=== PATIENT | female | born 1980 | race American Indian/Alaskan Native ===

== ENCOUNTER 2018-11-30 17:49 | Inpatient (IN) ==
[2018-11-30] MEDS ORDERED: IOPAMIDOL 100 ML BOTTLE IV ONE (17:50)
[2018-11-30] MEDS ORDERED: KETOROLAC 30 MG/ML VIAL IV ONE (18:10)
[2018-11-30] MEDS ORDERED: ONDANSETRON 4 MG/2 ML VIAL IV ONE ×2 (18:11→21:22)
[2018-11-30] MEDS ORDERED: 0.9 % SODIUM CHLORIDE 1,000 ML IV ONE ×2 (18:22→20:38)
[2018-11-30 19:44] LABS: Basophils # (Auto) 0 K/mcL (0.0-0.3); Basophils % (Auto) 0 % (0.0-2.0); Eosinophils # (Auto) 0 K/mcL (0.0-0.7); Eosinophils % (Auto) 0 % (0.0-7.0); Granulocytes % (Auto) 88.2 % (38.0-78.0); Lymphocytes # (Auto) 1.6 K/mcL (1.5-4.8); Lymphocytes % (Auto) 10.6 % (15.5-49.0); Mean Cell Volume 73.3 fL (80.0-100.0); Mean Corpuscular HGB Conc 31.4 g/dL (31.0-36.0); Monocytes # (Auto) 0.2 K/mcL (0.1-0.9); Monocytes % (Auto) 1.2 % (1.0-12.0); Platelet Count 258 K/mcL (140-440); Red Cell Distribution Width 18.8 % (11.5-14.5)
[2018-11-30 20:16] LABS: ALT/SGPT 19 U/l (0-40); Albumin/Globulin Ratio 1.1 (1.0-2.3); Alkaline Phosphatase 107 U/L (39-117); Blood Urea Nitrogen 3 mg/dl (6-20); Lipase 37 U/L (7-60)
[2018-11-30] MEDS ORDERED: HYDROmorphone 2 MG/ML VIAL IV ONE (20:38)
[2018-11-30] MEDS ORDERED: cefTRIAXone 1 GM VIAL IV ONE (20:38)
[2018-11-30] MEDS ORDERED: ACETAMINOPHEN 325 MG TABLET PO ONE (22:20)
[2018-11-30 22:38] LABS: Appearance,Urine CLEAR; Bacteria,Urine 0 /hpf (0); Bilirubin,Urine NEG (NEG); Color,Urine YELLOW; Glucose,Urine (UA) NEGATIVE (NEG); Leukocyte Esterase,Urine 500 /uL (NEG); Mucus,Urine MOD /hpf (0); Protein,Urine NEG (NEG); Specific Gravity,Urine 1.034 (1.000-1.035); Urine Blood 0.2 mg/dL (<0.03); Urine RBC 24 /hpf (0-1); Urine Squamous Epithelial Cell 5 /hpf (0-4); Urine Transitional Epi Cells < 1 /hpf (0-2); Urine WBC 161 /hpf (0-4)
[2018-11-30 22:49] LABS: Amphetamine Screen,Urine SUSPECT POSITIVE (NONDETECTED); Benzodiazepines Screen,Urine NONE DETECTED (NONDETECTED); Cocaine Screen,Urine NONE DETECTED (NONDETECTED); Opiate Screen,Urine NONE DETECTED (NONDETECTED); Oxycodone, Urine Screen NONE DETECTED (NONDETECTED)
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
[2018-11-30] MEDS ORDERED: PROMETHAZINE 25 MG/ML VIAL IM PRN (23:35)
[2018-11-30] MEDS ORDERED: HYDROcodone/APAP 5/325MG TABLET PO PRN (23:35)
[2018-11-30] MEDS ORDERED: ONDANSETRON 4 MG/2 ML VIAL IV PRN (23:35)
[2018-11-30] MEDS ORDERED: ACETAMINOPHEN 650 MG/65 ML BOTTLE IV ONE (23:42)
[2018-11-30] MEDS ORDERED: cefTRIAXone 1 GM VIAL IV SCH (23:45)
[2018-11-30] MEDS ORDERED: cefTRIAXone 2 GM in DEXTROSE 5% IN WATER 50 ML IV SCH (23:45)
[2018-11-30] MEDS ORDERED: 0.9 % SODIUM CHLORIDE 1,000 ML IV SCH (23:45)
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
[2018-11-30] MEDS ORDERED: LORazepam 0.5 MG TABLET PO PRN (23:51)
[2018-12-01] MEDS ORDERED: ACETAMINOPHEN 650 MG/65 ML BOTTLE IV PRN (00:49)
[2018-12-01] MEDS ORDERED: cefTRIAXone 1 GM VIAL ONE (01:10)
[2018-12-01] MEDS: LACTATED RINGERS 1,000 ML IV SCH ×3 (01:15→13:29)
[2018-12-01 06:01] LABS: Mean Cell Volume 75.9 fL (80.0-100.0); Mean Corpuscular HGB Conc 30.8 g/dL (31.0-36.0); Platelet Count 197 K/mcL (140-440); RBC 4.56 M/mcL (4.00-5.20); Red Cell Distribution Width 19.3 % (11.5-14.5)
[2018-12-01 06:38] LABS: ALT/SGPT 39 U/l (0-40); Alkaline Phosphatase 100 U/L (39-117); Bilirubin,Direct < 0.2 mg/dL (0.0-0.3); Blood Urea Nitrogen 5 mg/dl (6-20); Gamma Glutamyl Transpeptidase 15 U/L (5-36); Uric Acid 2.9 mg/dL (2.5-8.0)
[2018-12-01 07:33] LABS: Anisocytosis 1+ (NONE SEEN); Band Neutrophils % 27 % (0-10); Hypochromasia 1+ (NONE SEEN); Lymphocytes % 5 % (15-49); Monocytes % (Manual) 2 % (1-12); Platelet Estimate NORMAL (NORMAL); RBC Morphology ABNORM (NORMAL); Segmented Neutrophils % 66 % (38-78)
--- NOTE | 2018-12-01 07:53 | XRay Report ---
HISTORY: Lost tampon with abdominal pain FINDINGS: There is no evidence of a tampon within the abdomen or pelvis. There are clips in the gallbladder fossa. There are multiple tiny flecks of radiopaque material mixed with stool in the colon. This is probably ingested material. There is a small air-fluid level in a loop of jejunum in the left upper quadrant. This is a nonspecific pattern. This segment of bowel is not abnormally dilated. No free intra-abdominal air is present. The stomach is decompressed. IMPRESSION: No evidence of tampon within the abdomen and no acute abnormality Interpreted and Authenticated by: Fernandez Mckeon 12/01/18
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
--- NOTE | 2018-12-01 08:19 | Cat Scan Report ---
CLINICAL INFORMATION: Fever and severe abdominal and pelvic pain COMPARISON: None. TECHNIQUE: Following injection of intravenous contrast the patient was scanned during the portal venous phase from the diaphragm through the symphysis pubis. Sagittal and coronal reformats were created.. Radiation exposure was limited using dose reduction technology. FINDINGS: Dependent atelectasis is present posteriorly in both lung bases. There is no pleural effusion. Liver is normal in size. Beneath the capsule far inferiorly in segment six of the right lobe there is a well-circumscribed low-attenuation structure which measures 2.1 x 2.4 cm. This seen on axial image #80. It has fluid attenuation and is most likely a cyst. The remainder the liver is normal. The gallbladder has been removed. Common bile duct measures up to 6 x 7 mm in diameter. This is within normal limits following cholecystectomy. There is no evidence of stone or mass in the distal common bile duct. The pancreas is normal in size and homogeneous. The spleen is also normal. No abnormality is seen within the adrenals. The right kidney is normal. An 8 x 9 mm simple cyst is present posteriorly in the middle portion of the left kidney. The kidneys are otherwise normal. Patient has an internal hernia containing a segment of distal jejunum. Is located anterior to the left kidney. There is visualization of the contents within this dilated and trapped segment of small bowel. This measures 4 cm in diameter. It is contiguous with the descending and sigmoid colon but separate from the colon. There is a large amount of liquefied stool in the cecum and ascending colon and a moderate amount of gas and stool in the transverse proximal descending colon there is a mobile cecum. Multiple flecks of radiopaque material are seen mixed with stool in the distal colon. There is no evidence of diverticulitis. The sigmoid colon is decompressed and not abnormally elongated. The uterus is enlarged and bulky and has abnormal low attenuation in the central component. The periphery appears somewhat hypervascular. No abnormality seen in the ovaries separate calcification adjacent to left ovary which measures 6 to 7 mm greatest diameter. No free fluid is present. Urinary bladder appears normal. IMPRESSION: Internal hernia with incarcerated jejunum in the left mid abdomen. Enlarged edematous uterus. This could be due to endometritis Cysts in the liver and left kidney Dr. Contreras was called with the results Interpreted and Authenticated by: Fernandez Mkceon 12/01/18
[2018-12-01] MEDS ORDERED: MAGNESIUM SULFATE 2 GM/50 ML BAG IV ONE ×2 (08:47→15:30)
--- NOTE | 2018-12-01 09:20 | Ultrasound Report ---
History: Sepsis and abdominal pain L findings This was a technically limited exam. Patient was unable to hold still nor tolerate any abdominal pressure from the ultrasound transducer. The visualized portion of liver appears normal and homogeneous. The cystic structure seen inferiorly in segment six on the preceding CT scan cannot be identified on this ultrasound. The gallbladder is surgically absent. The extrahepatic bile ducts cannot be visualized. Only small segments of the pancreas are visualized and appear grossly normal. The spleen is normal in size and homogeneous. Limited views of the kidneys show no abnormality. The aorta and inferior vena cava are not seen. No free fluid or mass are identified. IMPRESSION: Limited exam with no acute abnormality identified Interpreted and Authenticated by: Fernandez Mckeon 12/01/18
[2018-12-01] MEDS: PIPERACILLIN SODIUM/TAZOBACTAM 3.375 GM in DEXTROSE 5% IN WATER 50 ML IV SCH ×3 (10:12→22:30)
--- NOTE | 2018-12-01 12:07 | General Surgery Progress Note ---
Surgical - Auxillary Note - Subjective Patient Information: Note initiated : 12/01/18 at 11:58 am Service Date, if different from initiated Date: [] Patient: Anabell Moreno 38 y/o F admitted on 12/01/18 for ABD PAIN. Chief Complaint: abdominal pain. On review of the patient's CT scan this morning with the radiologist here at [facility], it appears that the patient has a chronic internal hernia that now has facalized, stool in it. I personally reviewed the images with the radiologist and it appears that this is in the left lower quadrant and is very close to the descending colon. The bowel appears to be viable, but it is dilated and you can clearly see where the blood vessels and bowel going into an area and then come back out and there is formed stool within that portion of small bowel. The rest of the bowel is clearly dilated. The patient's white blood cell count has gone up to 22,000. Her pain is improved and she did move her bowel. This morning, but the pain in her left lower quadrant is still significant and I feel that it is in her best interest to have a surgical procedure now rather than waiting until she becomes obstructed. I have discussed the risks, benefits, alternatives and complications of an exploratory laparotomy with possible small bowel obstruction with the patient to include but not limited to bleeding, hematoma, seroma, infection, spillage of stool, intra-abdominal abscess formation, need to resect bowel, breakdown of the anastomosis, postoperative ileus, need for a nasogastric tube, injury to other portions of the bowel, need for other surgical procedures, injury to the ureters, injury to blood vessels, infection of the incision site, need to leave the incision open, blood clots in the legs, leg clots in the lungs, aspiration, pneumonia, heart attack, stroke and . The patient states she understands and desires the procedure. The benefit will be that the internal hernia will be resolved and this may help with her constipation issues. The alternative would be to continue to give her antibiotics, IV hydration and follow her exam, but I do not feel that this is going to resolve the internal hernia.
[2018-12-01] MEDS ORDERED: LORazepam 2 MG/ML VIAL IV PRN (13:09)
[2018-12-01] MEDS ORDERED: chlordiazePOXIDE 25 MG CAPSULE PO PRN (13:09)
[2018-12-01] MEDS ORDERED: cloNIDine HCL 0.1 MG TABLET PO PRN (13:09)
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
[2018-12-01] MEDS: 0.9 % SODIUM CHLORIDE 10 ML SYRINGE IV SCH ×2 (13:29→22:30)
[2018-12-01] MEDS ORDERED: SUGAMMADEX SODIUM 200 MG/2 ML VIAL IV ONE (15:30)
[2018-12-01] MEDS ORDERED: ONDANSETRON 4 MG/2 ML VIAL ONE (15:30)
[2018-12-01] MEDS ORDERED: VASOPRESSIN 20 UNIT/ML VIAL ONE (15:30)
[2018-12-01] MEDS ORDERED: KETAMINE 10 MG/ML ML ONE (15:30)
[2018-12-01] MEDS ORDERED: PROPOFOL 200 MG/20 ML VIAL IV ONE (15:30)
[2018-12-01] MEDS ORDERED: DEXAMETHASONE 10 MG/ML VIAL ONE (15:30)
[2018-12-01] MEDS ORDERED: LIDOCAINE HCL/PF 100 MG/5 ML SYRINGE IV ONE (15:30)
[2018-12-01] MEDS ORDERED: fentaNYL 100 MCG/2 ML VIAL IV ONE (15:30)
[2018-12-01] MEDS ORDERED: HYDROmorphone 2 MG/ML VIAL ONE ×2 (15:30→22:22)
[2018-12-01] MEDS ORDERED: ROCURONIUM 10 MG/ML ML IV ONE (15:30)
[2018-12-01] MEDS ORDERED: MIDAZOLAM 5 MG/5 ML VIAL ONE (15:30)
[2018-12-01] MEDS ORDERED: PHENYLEPHRINE 10 MG/ML VIAL ONE (15:30)
[2018-12-01] MEDS ORDERED: LIDOCAINE 1% 20 ML VIAL SQ ONE (15:51)
[2018-12-01] MEDS ORDERED: BUPIVACAINE 0.25% 50 ML VIAL IJ ONE (15:51)
[2018-12-01] MEDS ORDERED: metroNIDAZOLE 500 MG TABLET PO ONE (17:10)
[2018-12-01] MEDS ORDERED: AZITHROMYCIN 250 MG TABLET PO ONE (17:11)
[2018-12-01] MEDS ORDERED: cefTRIAXone 250 MG VIAL IV ONE (17:11)
[2018-12-01] MEDS ORDERED: IPRATROPIUM/ALBUTEROL 3 ML AMPUL.NEB NEB PRN (20:37)
[2018-12-01] MEDS ORDERED: MEPERIDINE 25 MG/ML SYRINGE IV PRN (20:37)
[2018-12-01] MEDS ORDERED: ONDANSETRON 4 MG/2 ML VIAL IV PRN (20:37)
[2018-12-01] MEDS ORDERED: BENZOCAINE/MENTHOL 1 LOZENGE PO PRN (20:37)
[2018-12-01] MEDS ORDERED: FLUMAZENIL 0.1 MG/ML ML IV PRN (20:37)
[2018-12-01] MEDS ORDERED: NALOXONE HCL 0.4 MG/ML VIAL IV PRN ×2 (20:37→21:37)
[2018-12-01] MEDS ORDERED: KETOROLAC 30 MG/ML VIAL IV PRN (20:37)
[2018-12-01] MEDS ORDERED: LACTATED RINGERS 250 ML IV PRN (20:37)
[2018-12-01] MEDS ORDERED: ACETAMINOPHEN 1,000 MG/100 ML BOTTLE IV ONE (20:37)
[2018-12-01] MEDS ORDERED: fentaNYL 100 MCG/2 ML VIAL IV PRN (20:37)
[2018-12-01] MEDS ORDERED: METHOCARBAMOL 1,000 MG/10 ML VIAL IV PRN (20:37)
[2018-12-01] MEDS ORDERED: LACTATED RINGERS 1,000 ML IV SCH (20:45)
--- NOTE | 2018-12-01 21:31 | Brief Operative Note ---
Date of procedure: 12/01/18 Pre-op diagnosis: possible internal hernia with incarceration Post-op diagnosis: other (chronic internal hernia with no evidence of incarceration, multiple intra-abdominal adhesions, massive dilation of the sigmoid colon, likely PID) Procedure: 1) exploratory laparotomy. 2) extensive enterolysis. 3) resection of sigmoid colon with handsewn end-to-end anastomosis. 4) takedown of the splenic flexure Grafts/Implants: No Anesthesia: GETA Findings: 1) extensive adhesions between loops of bowel and the omentum. 2. Internal hernia caused by the omentum pulling the sigmoid colon, up toward the liver with: Underneath this which was dilated proximal and distal to this area. 3). Massively dilated sigmoid colon with a rent in the mesentery which would easily allow small bowel to go through it, although there was no evidence of small bowel hernia Complications: none Surgeon: Aly Kline Estimated blood loss (cc): 150 (milliliters) Specimens Removed/Pathology: other (sigmoid colon) Condition: stable Disposition: floor
[2018-12-01] MEDS ORDERED: diphenhydrAMINE 50 MG/ML VIAL IV PRN (21:37)
[2018-12-01] MEDS ORDERED: AZITHROMYCIN 500 MG in DEXTROSE 5% IN WATER 250 ML IV ONE (22:00)
[2018-12-01] MEDS ORDERED: METRONIDAZOLE IV ONE (22:00)
[2018-12-01] MEDS: DEXTROSE 5%-1/2NS 1,000 ML IV SCH (22:10)
[2018-12-01] MEDS ORDERED: metroNIDAZOLE 1,000 MG/200 ML BAG IV ONE (22:11)
[2018-12-01] MEDS ORDERED: HYDROmorphone 2 MG/ML VIAL IV PRN (22:35)
[2018-12-02 00:13] LABS: Blood Urea Nitrogen 7 mg/dl (6-20)
[2018-12-02] MEDS: LACTATED RINGERS 1,000 ML IV SCH ×2 (00:28→02:45)
[2018-12-02] MEDS: PIPERACILLIN SODIUM/TAZOBACTAM 3.375 GM in DEXTROSE 5% IN WATER 50 ML IV SCH ×5 (01:51→23:59)
[2018-12-02] MEDS ORDERED: metroNIDAZOLE 1,000 MG/200 ML BAG IV ONE (01:52)
[2018-12-02] MEDS ORDERED: HYDROmorphone 2 MG/ML VIAL ONE (02:21)
[2018-12-02] MEDS: DEXTROSE 5%-1/2NS 1,000 ML IV SCH ×4 (05:15→20:15)
[2018-12-02] MEDS: 0.9 % SODIUM CHLORIDE 10 ML SYRINGE IV SCH ×3 (05:52→23:06)
[2018-12-02 06:17] LABS: Mean Corpuscular HGB Conc 30.2 g/dL (31.0-36.0); Platelet Count 210 K/mcL (140-440); RBC 4.53 M/mcL (4.00-5.20); Red Cell Distribution Width 19.2 % (11.5-14.5)
[2018-12-02 06:42] LABS: ALT/SGPT 20 U/l (0-40); Albumin 2.1 gm/dL (3.2-5.2); Albumin/Globulin Ratio 0.8 (1.0-2.3); Alkaline Phosphatase 106 U/L (39-117); Bilirubin,Direct < 0.2 mg/dL (0.0-0.3); Blood Urea Nitrogen 7 mg/dl (6-20); Gamma Glutamyl Transpeptidase 10 U/L (5-36); Uric Acid 1.4 mg/dL (2.5-8.0)
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
[2018-12-02] MEDS ORDERED: CALCIUM GLUCONATE 4.65 MEQ in DEXTROSE 5% IN WATER 50 ML IV ONE (08:00)
[2018-12-02 08:57] LABS: Anisocytosis 1+ (NONE SEEN); Band Neutrophils % 35 % (0-10); Hypochromasia 1+ (NONE SEEN); Lymphocytes % 5 % (15-49); Ovalocytes OCC (NONE SEEN); Platelet Estimate NORMAL (NORMAL); RBC Morphology ABNORM (NORMAL); Segmented Neutrophils % 60 % (38-78)
[2018-12-02] MEDS ORDERED: FOLIC ACID 1 MG TABLET PO SCH (09:00)
[2018-12-02] MEDS ORDERED: MULTIVIT,THER IRON,CA,FA & MIN 1 TABLET PO SCH (09:00)
[2018-12-02] MEDS ORDERED: ENOXAPARIN 30 MG/0.3 ML SYRINGE SQ SCH (09:00)
[2018-12-02] MEDS ORDERED: THIAMINE 100 MG TABLET PO SCH (09:00)
[2018-12-02] MEDS ORDERED: AZITHROMYCIN 500 MG in DEXTROSE 5% IN WATER 250 ML IV ONE (09:00)
[2018-12-02] MEDS ORDERED: HYDROmorphone 2 MG/ML VIAL IV PRN (11:05)
[2018-12-02] MEDS ORDERED: chlordiazePOXIDE 25 MG CAPSULE PO PRN (11:31)
[2018-12-02] MEDS ORDERED: PROMETHAZINE 25 MG/ML VIAL IM PRN (11:31)
[2018-12-02] MEDS ORDERED: NALOXONE HCL 0.4 MG/ML VIAL IV PRN (11:31)
[2018-12-02] MEDS ORDERED: LORazepam 2 MG/ML VIAL IV PRN (11:31)
[2018-12-02] MEDS: THIAMINE 100 MG in 0.9 % SODIUM CHLORIDE 50 ML IV SCH (12:10)
--- NOTE | 2018-12-02 12:27 | General Surgery Progress Note ---
Subjective Patient reports: still having pain, no flatus, no bowel movement, afebrile Narrative: Note initiated : 12/02/18 at 12:26 pm Service Date, if different from initiated Date: [] Patient: Anabell Moreno 38 y/o F admitted on 12/01/18 for ABD PAIN. Chief Complaint: Lower abdominal pain Postoperative day #1 status post 1) exploratory laparotomy, 2) extensive enterolysis, 3) resection of sigmoid colon with handsewn anastomosis and 4) takedown of splenic flexure Patient states that she does feel better than she did yesterday at that her surgical site pain is significant and all the Dilaudid is helping the time between doses is not controlling the pain prolonged enough. I explained we will address those. I was unable to give her a BULK [employer] HANDLER because there are no wall attendant available in the hospital. Explained to her that the Gao catheter will be removed this morning and she will need to get out of bed, walking to the bathroom and use the commode and not use a bedpan. She stated she understood. I explained to her that she might have some bowel movements but this is secondary to residual stool that was in her very dilated rectum. Explained to her why she has drains in place. She states she understands. Explained the significance of being out of bed into a chair, ambulating and using the incentive spirometer. She also states she understands. I did let the patient know there was not any compromised or nonviable bowel. I removed the sigmoid colon because she did have an area of scarring which was c reating an internal hernia for the small bowel and after taking this down, the sigmoid colon was so dilated, large and heavy that it was not safe to leave it in place as it would lead to further complications. She has had these bowel issues for years and they were not acute but they were made worse by her primary problem which is pelvic inflammatory disease and a UTI. These are being managed by the primary service. Objective Temp Pulse Resp BP Pulse Ox 97.6 F 82 16 110/67 97 12/02/18 11:53 12/02/18 11:53 12/02/18 11:53 12/02/18 11:53 12/02/18 07:10 - Additional Data Intake & Output - Last 24 hours: Intake & Output 11/30/18 12/01/18 12/02/18 12/03/18 05:59 05:59 05:59 05:59 Intake Total 2100 690 115 Output Total 745 Balance 2100 6150 115 Weight 168 lb 168 lb - General physical appearance well developed, well nourished, moderate pain - Eyes normal ocular movement, other (no scleral icterus) - ENT normal pinna, normal nares, normal mucosa, no hearing loss, no congestion - Neck no masses, trachea midline, no venous distension - Respiratory normal expansion, normal respiratory effort, other (no audible wheezes) - Cardiovascular Cardiovascular exam: Present: normal rate and rhythm (heart rate has consistently been less than 100 symptoms after midnight) - Abdomen soft, tender (appropriate postoperative tenderness), wound (dressing is clean dry and intact, Torres-Hsieh drains in the right and left paracolic gutters functioning with serosanguineous output) - Integumentary no rash - Neurologic normal coordination - Musculoskeletal other (moving all extremities in bed, no edema) - Psychiatric oriented to time, oriented to person, oriented to place, speech is normal - Labs 12/02/18 04:17 12/02/18 04:17 Diabetes panel 12/01/18 12/02/18 Range/Units 22:15 04:17 Sodium 137 138 (133-145) mmol/L Potassium 3.8 3.6 (3.3-5.1) mmol/L Chloride 106 106 (96-108) mmol/L Carbon Dioxide 19 L 21 L (22-30) mmol/L BUN 7 7 (6-20) mg/dl Creatinine 0.6 0.6 (0.6-1.1) mg/dl Glucose 136 H 200 H (70-105) mg/dL Calcium 7.0 L 6.8 L (8.6-10.4) mg/dl AST 26 (0-37) U/l ALT 20 (0-40) U/l Alkaline Phosphatase 106 (39-117) U/L Total Protein 4.6 L (5.9-8.4) gm/dL Albumin 2.1 L (3.2-5.2) gm/dL Triglycerides 33 (<150) mg/dl Calcium panel 12/01/18 12/02/18 Range/Units 22:15 04:17 Calcium 7.0 L 6.8 L (8.6-10.4) mg/dl Phosphorus 2.8 (2.7-4.5) mg/dL Albumin 2.1 L (3.2-5.2) gm/dL Pituitary panel 12/01/18 12/02/18 Range/Units 22:15 04:17 Sodium 137 138 (133-145) mmol/L Potassium 3.8 3.6 (3.3-5.1) mmol/L Chloride 106 106 (96-108) mmol/L Carbon Dioxide 19 L 21 L (22-30) mmol/L BUN 7 7 (6-20) mg/dl Creatinine 0.6 0.6 (0.6-1.1) mg/dl Glucose 136 H 200 H (70-105) mg/dL Calcium 7.0 L 6.8 L (8.6-10.4) mg/dl Adrenal panel 12/01/18 12/02/18 Range/Units 22:15 04:17 Sodium 137 138 (133-145) mmol/L Potassium 3.8 3.6 (3.3-5.1) mmol/L Chloride 106 106 (96-108) mmol/L Carbon Dioxide 19 L 21 L (22-30) mmol/L BUN 7 7 (6-20) mg/dl Creatinine 0.6 0.6 (0.6-1.1) mg/dl Glucose 136 H 200 H (70-105) mg/dL Calcium 7.0 L 6.8 L (8.6-10.4) mg/dl Total Bilirubin 0.6 (0.0-1.0) mg/dL AST 26 (0-37) U/l ALT 20 (0-40) U/l Alkaline Phosphatase 106 (39-117) U/L Total Protein 4.6 L (5.9-8.4) gm/dL Albumin 2.1 L (3.2-5.2) gm/dL Assessment and Plan (1) Urinary tract infection Status: Acute Assessment and plan: This is being managed by the primary service as well as the pelvic inflammatory disease Current Visit: Yes (2) Chronic constipation Status: Acute Assessment and plan: 1) this is likely secondary to an area of adhesion with a chronic nonincarcerated internal hernia. 2) postoperative day #1 status post sigmoid colectomy with primary anastomosis 3) should improve as she has return of bowel function Current Visit: Yes (3) Pelvic inflammatory disease, acute Status: Acute Assessment and plan: This is being managed by the primary admitting service and likely contributed to the worsening of her bowel distention and chronic constipation Current Visit: Yes (4) Hernia, internal Status: Acute Assessment and plan: 1) postoperative day #1 status post extensive lysis of adhesions (enteroclysis), sigmoid colectomy and splenic flexure takedown with primary colon to rectum, end to end anastomosis. 2) the patient was taken to the operating room because she had abdominal pain, her white blood cell count is elevated to 22,000 and on imaging it appeared that she had an incarcerated internal hernia. She did not have an incarcerated hernia. She did have an internal hernia which is easily reducible and all bowel was clearly viable. She also had evidence of PID with purulent fluid in her peritoneal cavity. 3) the internal hernia was addressed by performing a sigmoid colectomy rather than simply repairing the defect because the sigmoid colon was at least 4 times the normal size in diameter and after all the adhesions had been taken down there would not have been safe to return such a heavy, nonfunctioning portion of bowel into the peritoneal cavity. The risk would've been too great and it was more beneficial to perform the resection and it may help this patient with her chronic constipation. 4) for now the patient will remain strict nothing by mouth and her nasogastric tube will remain in place. Once I have been able to see her nasogastric tube output for greater than 24 hours and it is of a low enough volume, the nasogastric tube will be removed. I will not start feeding this patient until she has return of bowel function as she clearly had bowel which did not function properly is extremely distended. Hopefully with the resolution of her urinary tract infection and PID, she will have a quick return of bowel function. Ambulation and being out of bed into the chair and use of the incentive spir ometer are essential to this patient. Lovenox, 30 mg subcutaneous daily has been prescribed as the patient did undergo a significant intra-abdominal surgery and she has large areas of raw surface in her retroperitoneum. She should be up walking and moving around to assist in decreasing her risk of DVT. I discussed this with her. The patient does have significant risk of breakdown of her anastomosis as it is in an area of infection with her PID but again this is improving on antibiotics and hopefully there will be no issues. She does have [address] and if it appears that there is any drainage of purulent material or stool, she will be immediately reevaluated with CT scan and appropriate plans made. She needs to remain on antibiotics and the antibiotics she is on for PID and UTI are appropriate for coverage of intra-abdominal organisms. Current Visit: Yes - Time Spent With Patient Total time spent is greater than 50% in coordination of care (as documented) at patient's floor/unit and/or counseling patient: 25 - 35 minutes
--- NOTE | 2018-12-02 13:24 | Operative Note ---
Preoperative diagnosis: Internal hernia, incarcerated Postoperative diagnosis: 1) internal hernia, not incarcerated, 2) pelvic inflammatory disease, 3) extensive intra-abdominal adhesions, 4) significantly dilated, nonfunctional sigmoid colon Date of operation: 01 December 2018 Date of dictation: 02 December 2018 Procedure: 1) sigmoid colectomy with end-to-end anastomosis (handsewn), 2) ta [place] of splenic flexure, 3) extensive enteroclysis (lysis of adhesions), 4) exploratory laparotomy Surgeon: Aly Kline M.D., [facility] Data Coder Operator: None Anesthesia: General endotracheal anesthesia Antibiotics: Patient is on scheduled antibiotics and these had been appropriately given Estimated blood loss: 150 mL Fluids: 3500 mL crystalloid Urine output: 250 mL Specimen: Sigmoid colon Drains: 2 round 10 Faroese drains were placed in the paracolic gutters (1 on the right and one on the left) Implants: None Complications: None Condition: Stable Findings: 1) extensive adhesions of omentum to the liver and colon as well as adhesions of colon to colon, 2) large opening in the mesentery near the splenic flexure and sigmoid colon allowing small bowel to slide in and out (internal hernia, not incarcerated), 3) very dilated cecum to approximately 2 times normal with a healthy appendix, 4) omentum going over the hepatic flexure and attaching itself to the liver causing compression of the hepatic flexure and beginning of the transverse colon, 5) adhesions of the transverse colon to the diaphragm and stomach, 6) significant adhesion of the beginning of the sigmoid colon creating an area of narrowing followed by an extremely dilated sigmoid colon to approximately 4 times normal, 7) evidence of pelvic inflammatory disease Description of the procedure: After the patient had been correctly identified and informed consent been obtained, she was taken to the operating room on a stretcher and transferred to the OR table. General endotracheal anesthesia was induced and it was ensured that all pressure points were adequately padded. The abdomen was prepped and draped in the normal sterile fashion. A final timeout was performed to ensure that this is correct patient and correct procedure and that antibiotics are being given appropriately. Everyone agreed. An incision was made from above the umbilicus to just above the pubic symphysis within the midline. Electrocautery was used to dissect down to the midline fascia. The midline fascia was incised and a finger was bluntly placed in the peritoneal cavity. The rest of the midline fascia was opened throughout the incision. There was some murky fluid within the peritoneal cavity that was suctioned clear. The terminal ileum was easily identified and an the entirety of the small bowel was traced from the terminal ileum to the ligament of Treitz. The only abnormality was a small adhesion near the terminal ileum but it was not obstructing in any way. There was also noted that there was a significant loop of bowel going through an internal hernia but it easily moved in and out of the hernia in the area of the splenic flexure and descending colon with no evidence of incarceration. The small bowel was again run from the ligament of Treitz to the terminal ileum with no other findings nose all our dimension. The colon was extremely dilated and thickened particularly in the area of the sigmoid. The bladder was decompressed with a Gao. The uterus was enlarged and slightly inflamed, the fallopian tubes were very inflamed as were the fimbria and bilateral ovaries were in place with evidence of cysts of both ov hannah but they were small. The uterus tubes and ovaries were retracted anteriorly and the rectum was identified and the colon was traced back up through the very dilated sigmoid colon and then getting to an area of significant adhesions near the splenic flexure and beginning of the descending colon, the transverse colon was difficult to evaluate initially because of adhesions of the omentum up towards the liver, the splenic flexure could not be seen in the descending colon was dilated to approximately 1-1/2-2 times normal as was the cecum, the appendix was normal. I carefully took down the white line of Toldt on the left side and very carefully began taking down adhesions as I had to in order to be able to evaluate the colon. Not all adhesions were taken down. There were significant adhesions in the proximal portion of the sigmoid colon/distal descending colon with an area that was much smaller and more decompressed then the rest of the colon. This appeared to be in the area of the defect for the internal hernia. The splenic flexure was very carefully taken down after extending the superior portion of the midline incision for greater exposure. This allowed much better visualization of the descending colon and sigmoid colon. There were significant adhesions of the transverse colon up to the stomach and gastrocolic ligament and these did have to be taken down in order to be able to evaluate the transverse colon this was done very carefully with sharp and electrocautery dissection. I had to take down significant omental attachments to the diaphragm and the liver in order to be able to rotate the omentum down and evaluate the hepatic flexure which then allowed me to be able to evaluate the rest of the right side of the colon. Once all of the adhesions had been removed once again ran the entire small bowel with no new findings. I then ran the entire colon starting at the cecum and appendix there was a small serosal injury which was oversewn with 3-0 Vicryl sutures in the descending colon. The hepatic flexure and transverse colon were viable. The splenic flexure was completely taken down in order to provide adequate exposure of this very large dilated sigmoid colon and the area of decompression and adhesion. The sigmoid colon was extremely dilated with liquid stool. There did not appear to be any abnormalities in the rectum. I found an area proximal to the decompressed and scarred sigmoid colon, made a window in the mesentery and placed a JENNIFER 75 stapler across this. This was fired and transected and then moved to the distal sigmoid colon, proximal rectum and created a window in this area was very large and dilated and required 2 firings of the JENNIFER-75 stapler to get all the way across the tissue. I then took down the mesentery which contai jag some very large vessels which required suture ligation. Once this was completely transected the specimen was passed off. I then ensured that there was no tension and the colon as it would go down to the rectum. These lay very well together. A posterior row of 3-0 silk sutures was placed in the rectum and colon. The staple lines from the distal colon and proximal rectum were cut and mucosal sutures were placed with 3-0 Vicryl. This was continued all the way around for complete anastomosis. Then multiple 3-0 silk sutures were placed for the anterior row containing serosa and muscularis the same as been done in the posterior row. A few sutures were placed in the areas where the rectal staple line came in contact with the anastomosis. The mesenteric defect was approximated using a running 3-0 Vicryl suture. The abdomen was irrigated with 5 L of warm saline until clear. A 10 mm round drain was placed in the right paracolic gutter and secured in place with 3-0 Prolene suture. The same procedure was performed on the left. The fascia was approximated using looped 0 Prolene sutures ensuring not to injure the bowel and securing them together near the umbilicus. The skin was approximated using cristian. Dressings were applied to the drains and the incision, the patient was extubated, moved to her bed and taken the recovery room in stable condition. There were no complications.
[2018-12-02] MEDS: HYDROmorphone 2 MG/ML VIAL IV PRN ×6 (14:14→23:05)
[2018-12-02] MEDS: ACETAMINOPHEN 650 MG/65 ML BOTTLE IV PRN ×2 (14:21→20:34)
[2018-12-03] MEDS: HYDROmorphone 2 MG/ML VIAL IV PRN ×11 (01:22→22:20)
[2018-12-03] MEDS: ACETAMINOPHEN 650 MG/65 ML BOTTLE IV PRN (02:13)
[2018-12-03] MEDS: DEXTROSE 5%-1/2NS 1,000 ML IV SCH ×2 (04:24→08:16)
[2018-12-03] MEDS: ONDANSETRON 4 MG/2 ML VIAL IV PRN (04:54)
[2018-12-03] MEDS: PIPERACILLIN SODIUM/TAZOBACTAM 3.375 GM in DEXTROSE 5% IN WATER 50 ML IV SCH ×4 (05:59→23:12)
[2018-12-03] MEDS: 0.9 % SODIUM CHLORIDE 10 ML SYRINGE IV SCH ×4 (06:01→21:01)
[2018-12-03 06:02] LABS: Mean Cell Volume 74.4 fL (80.0-100.0); Mean Corpuscular HGB Conc 31.1 g/dL (31.0-36.0); Platelet Count 196 K/mcL (140-440); RBC 3.77 M/mcL (4.00-5.20); Red Cell Distribution Width 18.5 % (11.5-14.5)
[2018-12-03 06:24] LABS: ALT/SGPT 18 U/l (0-40); Albumin/Globulin Ratio 0.8 (1.0-2.3); Alkaline Phosphatase 96 U/L (39-117); Bilirubin,Direct < 0.2 mg/dL (0.0-0.3); Blood Urea Nitrogen 5 mg/dl (6-20); Gamma Glutamyl Transpeptidase 12 U/L (5-36); Uric Acid 1.4 mg/dL (2.5-8.0)
[2018-12-03 06:35] LABS: Anisocytosis 1+ (NONE SEEN); Band Neutrophils % 17 % (0-10); Hypochromasia 1+ (NONE SEEN); Lymphocytes % 15 % (15-49); Monocytes % (Manual) 4 % (1-12); Platelet Estimate NORMAL (NORMAL); RBC Morphology ABNORM (NORMAL); Segmented Neutrophils % 64 % (38-78)
[2018-12-03] MEDS ORDERED: POTASSIUM PHOSPHATE 40 MEQ in DEXTROSE 5% IN WATER 500 ML IV ONE (07:30)
[2018-12-03] MEDS ORDERED: CALCIUM GLUCONATE 4.65 MEQ in DEXTROSE 5% IN WATER 50 ML IV ONE (07:31)
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
[2018-12-03] MEDS: ENOXAPARIN 30 MG/0.3 ML SYRINGE SQ SCH (08:15)
[2018-12-03] MEDS: THIAMINE 100 MG in 0.9 % SODIUM CHLORIDE 50 ML IV SCH (09:12)
[2018-12-03] MEDS ORDERED: 0.9 % SODIUM CHLORIDE 10 ML SYRINGE IV PRN (10:04)
--- NOTE | 2018-12-03 12:24 | General Surgery Progress Note ---
Subjective Narrative: Note initiated : 12/03/18 at 12:22 pm Service Date, if different from initiated Date: [] Patient: Anabell Moreno 38 y/o F admitted on 12/01/18 for ABD PAIN. Chief Complaint: 1) internal hernia, 2) pelvic inflammatory disease, 3) urinary tract infection. Postoperative day #2 status post 1) sigmoid colectomy with end-to-end colo- procto hand sewn anastomosis, 2) Splenic flexure takedown, 3) extensive enterolysis (lysis of adhesions), 4) exploratory laparotomy. Patient has done very well overnight. She has been up out of bed, unable to urinate without any difficulty. She has been walking in the hallways. She has had approximately 200 cc of output from her nasogastric tube, and I removed it at 1220 hrs. She states that when she gets her Dilaudid is helping, but to explain to her that she needs to ask for this medication as it is written for on an hourly basis since we do not have any patient-controlled anesthesia devices. No flatus and no bowel movements yet. Denies any nausea. Objective Temp Pulse Resp BP Pulse Ox 99 F 103 H 16 112/67 95 12/03/18 08:00 12/03/18 08:00 12/03/18 08:00 12/03/18 08:00 12/03/18 09:00 - Additional Data Intake & Output - Last 24 hours: Intake & Output 12/01/18 12/02/18 12/03/18 12/04/18 05:59 05:59 05:59 05:59 Intake Total 2100 6900 3821 50 Output Total 745 2225 510 Balance 2100 6155 1596 -460 Weight 168 lb 168 lb 172 lb 1.6 oz - General physical appearance well developed, well nourished, no distress, moderate pain, obese - Eyes normal ocular movement, other (non-icteric sclera) - ENT normal pinna, normal nares, normal mucosa, no hearing loss, no congestion - Neck trachea midline, no venous distension - Respiratory normal expansion, normal respiratory effort, other (. No audible wheezes) - Cardiovascular Cardiovascular exam: Present: normal rate and rhythm (. Heart rate is between , [id number] and is much improved since admission) - Abdomen soft, tender (, appropriate tenderness around the surgical site and drain sites), wound (. The dressing is intact and there is a small amount of drainage that was marked yesterday and has not enlarged. This is around the periumbilical area. There is no guarding or rebound) - Integumentary no rash - Neurologic normal coordination - Musculoskeletal normal gait - Psychiatric oriented to time, oriented to person, oriented to place, speech is normal, memory intact - Labs 12/03/18 04:17 12/03/18 04:17 Diabetes panel 12/03/18 Range/Units 04:17 Sodium 134 (133-145) mmol/L Potassium 3.1 L (3.3-5.1) mmol/L Chloride 101 (96-108) mmol/L Carbon Dioxide 27 (22-30) mmol/L BUN 5 L (6-20) mg/dl Creatinine 0.4 L (0.6-1.1) mg/dl Glucose 106 H (70-105) mg/dL Calcium 6.8 L (8.6-10.4) mg/dl AST 31 (0-37) U/l ALT 18 (0-40) U/l Alkaline Phosphatase 96 (39-117) U/L Total Protein 4.6 L (5.9-8.4) gm/dL Albumin 2.0 L (3.2-5.2) gm/dL Triglycerides 63 (<150) mg/dl Calcium panel 12/03/18 Range/Units 04:17 Calcium 6.8 L (8.6-10.4) mg/dl Phosphorus 1.2 L (2.7-4.5) mg/dL Albumin 2.0 L (3.2-5.2) gm/dL Pituitary panel 12/03/18 Range/Units 04:17 Sodium 134 (133-145) mmol/L Potassium 3.1 L (3.3-5.1) mmol/L Chloride 101 (96-108) mmol/L Carbon Dioxide 27 (22-30) mmol/L BUN 5 L (6-20) mg/dl Creatinine 0.4 L (0.6-1.1) mg/dl Glucose 106 H (70-105) mg/dL Calcium 6.8 L (8.6-10.4) mg/dl Adrenal panel 12/03/18 Range/Units 04:17 Sodium 134 (133-145) mmol/L Potassium 3.1 L (3.3-5.1) mmol/L Chloride 101 (96-108) mmol/L Carbon Dioxide 27 (22-30) mmol/L BUN 5 L (6-20) mg/dl Creatinine 0.4 L (0.6-1.1) mg/dl Glucose 106 H (70-105) mg/dL Calcium 6.8 L (8.6-10.4) mg/dl Total Bilirubin 0.5 (0.0-1.0) mg/dL AST 31 (0-37) U/l ALT 18 (0-40) U/l Alkaline Phosphatase 96 (39-117) U/L Total Protein 4.6 L (5.9-8.4) gm/dL Albumin 2.0 L (3.2-5.2) gm/dL Assessment and Plan (1) Urinary tract infection Status: Acute Assessment and plan: This is being managed by the primary service as well as the pelvic inflammatory disease Current Visit: Yes (2) Chronic constipation Status: Acute Assessment and plan: 1) this is likely secondary to an area of adhesion with a chronic non- incarcerated internal hernia. 2) postoperative day #2 status post sigmoid colectomy with primary anastomosis 3) should improve as she has return of bowel function Current Visit: Yes (3) Pelvic inflammatory disease, acute Status: Acute Assessment and plan: This is being managed by the primary admitting service and likely contributed to the worsening of her bowel distention and chronic constipation Current Visit: Yes (4) Hernia, internal Status: Acute Assessment and plan: 1) postoperative day #2 status post 1) extensive lysis of adhesions (enterolysis), 2) sigmoid colectomy, 3) splenic flexure takedown with primary colon to rectum, end to end anastomosis. 2) the patient was taken to the operating room because she had abdominal pain, her white blood cell count is elevated to 22,000 and on imaging it appeared that she had an incarcerated internal hernia. She did not have an incarcerated hernia. She did have an internal hernia which was easily reducible and all bowel was clearly viable. She also had evidence of PID with purulent fluid in her peritoneal cavity. 3) the internal hernia was addressed by performing a sigmoid colectomy rather than simply repairing the defect because the sigmoid colon was at least 4 times the normal size in diameter and after all the adhesions had been taken down there would not have been safe to return such a heavy, nonfunctioning portion of bowel into the peritoneal cavity. The risk would have been too great and it was more beneficial to perform the resection and it may help this patient with her chronic constipation. 4) For now the patient will remain strict nothing by mouth. The nasogastric tube was removed by me as she has very little output and she does have some bowel sounds. I will not start feeding this patient until she has return of bowel function as she clearly had bowel which did not function properly and was extremely distended. Hopefully with the resolution of her urinary tract infection and PID, she will have a quick return of bowel function. She has had normalization of her white blood cell count. Ambulation and being out of bed into the chair and use of the incentive spirometer are essential to this patient. Lovenox, 30 mg subcutaneous daily has been prescribed as the patient did undergo a significant intra-abdominal surgery and she has large areas of raw surface in her retroperitoneum. She should be up walking and moving around to assist in decreasing her risk of DVT. I discussed this with her and she has been up to the bathroom and walking in the halls. The patient does have significant risk of breakdown of her anastomosis as it is in an area of infection with her PID but again this is improving on antibiotics and hopefully there will be no issues. She does have [address] and if it appears that there is any drainage of purulent material or stool, she will be immediately reevaluated with CT scan and appropriate plans made. She needs to remain on antibiotics and the antibiotics she is on for PID and UTI are appropriate for coverage of intra-abdominal organisms. Current Visit: Yes - Narrative A/P Narrative: Please review the assessment and plan under each of the issues listed above. - Time Spent With Patient Total time spent is greater than 50% in coordination of care (as documented) at patient's floor/unit and/or counseling patient: 25 - 35 minutes
[2018-12-04] MEDS: HYDROmorphone 2 MG/ML VIAL IV PRN ×10 (02:08→21:55)
[2018-12-04] MEDS: DEXTROSE 5%-1/2NS 1,000 ML IV SCH ×4 (02:10→23:25)
[2018-12-04] MEDS: ACETAMINOPHEN 650 MG/65 ML BOTTLE IV PRN ×3 (02:32→19:43)
[2018-12-04] MEDS: PIPERACILLIN SODIUM/TAZOBACTAM 3.375 GM in DEXTROSE 5% IN WATER 50 ML IV SCH ×3 (05:26→17:35)
[2018-12-04 05:30] LABS: Mean Cell Volume 74.5 fL (80.0-100.0); Platelet Count 215 K/mcL (140-440); RBC 4.03 M/mcL (4.00-5.20); Red Cell Distribution Width 18.9 % (11.5-14.5)
[2018-12-04] MEDS: 0.9 % SODIUM CHLORIDE 10 ML SYRINGE IV SCH ×3 (05:31→21:56)
[2018-12-04 05:57] LABS: ALT/SGPT 15 U/l (0-40); Albumin 2.2 gm/dL (3.2-5.2); Albumin/Globulin Ratio 0.7 (1.0-2.3); Alkaline Phosphatase 214 U/L (39-117); Bilirubin,Direct < 0.2 mg/dL (0.0-0.3); Blood Urea Nitrogen 3 mg/dl (6-20); Gamma Glutamyl Transpeptidase 23 U/L (5-36)
[2018-12-04 06:20] LABS: Anisocytosis 1+ (NONE SEEN); Band Neutrophils % 3 % (0-10); Hypochromasia 1+ (NONE SEEN); Lymphocytes % 18 % (15-49); Monocytes % (Manual) 3 % (1-12); Platelet Estimate NORMAL (NORMAL); RBC Morphology ABNORM (NORMAL); Segmented Neutrophils % 76 % (38-78)
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
[2018-12-04] MEDS: ENOXAPARIN 30 MG/0.3 ML SYRINGE SQ SCH (09:12)
[2018-12-04] MEDS: THIAMINE 100 MG in 0.9 % SODIUM CHLORIDE 50 ML IV SCH (09:13)
--- NOTE | 2018-12-04 09:22 | XRay Report ---
HISTORY: PICC line placement FINDINGS: A PICC line has been inserted through the right arm. The tip is in the right atrium of the heart. There is no pneumothorax, pleural effusion or widening of the mediastinum. The lungs are clear. The heart size is normal. IMPRESSION: PICC line located centrally in the right atrium Interpreted and Authenticated by: Fernandez Mckeon 12/04/18
[2018-12-04] MEDS ORDERED: DOXYCYCLINE HYCLATE 100 MG TABLET.ORL PO ONE (11:48)
--- NOTE | 2018-12-04 14:09 | General Surgery Progress Note ---
Subjective Narrative: Note initiated : 12/04/18 at 2:07 pm Service Date, if different from initiated Date: [] Patient: Anabell Moreno 38 y/o F admitted on 12/01/18 for ABD PAIN. Chief Complaint: 1) internal hernia, 2) pelvic inflammatory disease, 3) urinary tract infection. Postoperative day #2 status post 1) sigmoid colectomy with end-to-end colo- procto hand sewn anastomosis, 2) Splenic flexure takedown, 3) extensive enterolysis (lysis of adhesions), 4) exploratory laparotomy.next Patient is still complaining that the pain medication does not work for as long as she would like. She is getting IV Dilaudid every hour. We do not have a ETHNOLOGY TEACHER available. This was explained to her and she understands. She states she is getting out of bed and walk around. No difficulties with urination and the burning with urination has resolved. No nausea. No emesis. No flatus. No bowel movements. Objective Temp Pulse Resp BP Pulse Ox 98.6 F 100 H 16 123/84 98 12/04/18 12:00 12/04/18 12:00 12/04/18 12:00 12/04/18 12:00 12/04/18 12:00 - Additional Data Intake & Output - Last 24 hours: Intake & Output 12/02/18 12/03/18 12/04/18 12/05/18 05:59 05:59 05:59 05:59 Intake Total 6900 3821 2935.0909 65 Output Total 745 2225 3330 800 Balance 6155 1596 -394.9091 -735 Weight 168 lb 172 lb 1.6 oz 170 lb 11.2 oz - General physical appearance well developed, well nourished, other (sleeping when I walked in the room) - Eyes normal ocular movement, other (, non-icteric sclera) - ENT normal pinna, normal nares, normal mucosa, no hearing loss, no congestion - Neck trachea midline, no venous distension - Respiratory normal expansion, normal respiratory effort, other (. No wheezes) - Cardiovascular Cardiovascular exam: Present: normal rate and rhythm - Abdomen soft, tender (, tender to palpation around the midline surgical incision and the drain sites. Dressings removed today. No evidence of infection. No drainage. New dry dressing was placed.), bowel sounds ( Active) - Genitourinary normal external genitalia - Integumentary no rash - Neurologic normal coordination, other (, oriented and appropriate) - Psychiatric oriented to time, oriented to person, oriented to place, speech is normal, memory intact - Labs 12/04/18 04:30 12/04/18 04:30 Diabetes panel 12/04/18 Range/Units 04:30 Sodium 137 (133-145) mmol/L Potassium 3.3 (3.3-5.1) mmol/L Chloride 102 (96-108) mmol/L Carbon Dioxide 29 (22-30) mmol/L BUN 3 L (6-20) mg/dl Creatinine 0.4 L (0.6-1.1) mg/dl Glucose 117 H (70-105) mg/dL Calcium 7.1 L (8.6-10.4) mg/dl AST 22 (0-37) U/l ALT 15 (0-40) U/l Alkaline Phosphatase 214 H (39-117) U/L Total Protein 5.2 L (5.9-8.4) gm/dL Albumin 2.2 L (3.2-5.2) gm/dL Triglycerides 80 (<150) mg/dl Calcium panel 12/04/18 Range/Units 04:30 Calcium 7.1 L (8.6-10.4) mg/dl Phosphorus 2.6 L (2.7-4.5) mg/dL Albumin 2.2 L (3.2-5.2) gm/dL Pituitary panel 12/04/18 Range/Units 04:30 Sodium 137 (133-145) mmol/L Potassium 3.3 (3.3-5.1) mmol/L Chloride 102 (96-108) mmol/L Carbon Dioxide 29 (22-30) mmol/L BUN 3 L (6-20) mg/dl Creatinine 0.4 L (0.6-1.1) mg/dl Glucose 117 H (70-105) mg/dL Calcium 7.1 L (8.6-10.4) mg/dl Adrenal panel 12/04/18 Range/Units 04:30 Sodium 137 (133-145) mmol/L Potassium 3.3 (3.3-5.1) mmol/L Chloride 102 (96-108) mmol/L Carbon Dioxide 29 (22-30) mmol/L BUN 3 L (6-20) mg/dl Creatinine 0.4 L (0.6-1.1) mg/dl Glucose 117 H (70-105) mg/dL Calcium 7.1 L (8.6-10.4) mg/dl Total Bilirubin 0.4 (0.0-1.0) mg/dL AST 22 (0-37) U/l ALT 15 (0-40) U/l Alkaline Phosphatase 214 H (39-117) U/L Total Protein 5.2 L (5.9-8.4) gm/dL Albumin 2.2 L (3.2-5.2) gm/dL Assessment and Plan (1) Urinary tract infection Status: Acute Assessment and plan: This is being managed by the primary service as well as the pelvic inflammatory disease Current Visit: Yes (2) Chronic constipation Status: Acute Assessment and plan: 1) this is likely secondary to an area of adhesion with a chronic non- incarcerated internal hernia. 2) postoperative day #3 status post sigmoid colectomy with primary anastomosis 3) should improve as she has return of bowel function Current Visit: Yes (3) Pelvic inflammatory disease, acute Status: Acute Assessment and plan: This is being managed by the primary admitting service and likely contributed to the worsening of her bowel distention and chronic constipation Current Visit: Yes (4) Hernia, internal Status: Acute Assessment and plan: 1) postoperative day #3 status post 1) extensive lysis of adhesions (enterolysis), 2) sigmoid colectomy, 3) splenic flexure takedown with primary colon to rectum, end to end anastomosis. 2) the patient was taken to the operating room because she had abdominal pain, her white blood cell count is elevated to 22,000 and on imaging it appeared that she had an incarcerated internal hernia. She did not have an incarcerated h ernia. She did have an internal hernia which was easily reducible and all bowel was clearly viable. She also had evidence of PID with purulent fluid in her peritoneal cavity. 3) the internal hernia was addressed by performing a sigmoid colectomy rather than simply repairing the defect because the sigmoid colon was at least 4 times the normal size in diameter and after all the adhesions had been taken down there would not have been safe to return such a heavy, nonfunctioning portion of bowel into the peritoneal cavity. The risk would have been too great and it was more beneficial to perform the resection and it may help this patient with her chronic constipation. 4) For now the patient will remain strict nothing by mouth. The nasogastric tube was removed. I will not start feeding this patient until she has return of bowel function as she clearly had bowel which did not function properly and was extremely distended. Hopefully with the resolution of her urinary tract infection and PID, she will have a quick return of bowel function. She has had normalization of her white blood cell count. Ambulation and being out of bed into the chair and use of the incentive spirometer are essential to this patient. The patient does have significant risk of breakdown of her anastomosis as it is in an area of infection with her PID but again this is improving on antibiotics and hopefully there will be no issues. She does have [address] and if it appears that there is any drainage of purulent material or stool, she will be immediately reevaluated with CT scan and appropriate plans made. She needs to remain on antibiotics and the antibiotics she is on for PID and UTI are appropriate for coverage of intra-abdominal organisms. Current Visit: Yes - Time Spent With Patient Total time spent is greater than 50% in coordination of care (as documented) at patient's floor/unit and/or counseling patient: 15 - 24 minutes
[2018-12-04] MEDS ORDERED: DOXYCYCLINE HYCLATE 100 MG TABLET.ORL PO SCH (21:00)
[2018-12-05] MEDS: PIPERACILLIN SODIUM/TAZOBACTAM 3.375 GM in DEXTROSE 5% IN WATER 50 ML IV SCH ×5 (00:01→23:55)
[2018-12-05] MEDS: HYDROmorphone 2 MG/ML VIAL IV PRN ×10 (00:09→23:56)
[2018-12-05] MEDS: diphenhydrAMINE 50 MG/ML VIAL IV PRN ×2 (00:09→23:59)
[2018-12-05] MEDS: ACETAMINOPHEN 650 MG/65 ML BOTTLE IV PRN ×3 (04:23→23:08)
[2018-12-05 05:24] LABS: Basophils # (Auto) 0 K/mcL (0.0-0.3); Basophils % (Auto) 0.2 % (0.0-2.0); Eosinophils # (Auto) 0.1 K/mcL (0.0-0.7); Eosinophils % (Auto) 2.3 % (0.0-7.0); Granulocytes % (Auto) 54.8 % (38.0-78.0); Lymphocytes # (Auto) 1.6 K/mcL (1.5-4.8); Lymphocytes % (Auto) 33.4 % (15.5-49.0); Mean Cell Volume 73.6 fL (80.0-100.0); Mean Corpuscular HGB Conc 31.2 g/dL (31.0-36.0); Monocytes # (Auto) 0.5 K/mcL (0.1-0.9); Monocytes % (Auto) 9.3 % (1.0-12.0); Platelet Count 213 K/mcL (140-440); RBC 3.68 M/mcL (4.00-5.20); Red Cell Distribution Width 19.1 % (11.5-14.5)
[2018-12-05 06:03] LABS: ALT/SGPT 12 U/l (0-40); Albumin 2.1 gm/dL (3.2-5.2); Albumin/Globulin Ratio 0.8 (1.0-2.3); Alkaline Phosphatase 94 U/L (39-117); Bilirubin,Direct < 0.2 mg/dL (0.0-0.3); Blood Urea Nitrogen 2 mg/dl (6-20); Gamma Glutamyl Transpeptidase 17 U/L (5-36)
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
[2018-12-05] MEDS: DOXYCYCLINE 100 MG in DEXTROSE 5% IN WATER 100 ML IV SCH ×2 (08:50→21:36)
[2018-12-05] MEDS: ENOXAPARIN 40 MG/0.4 ML SYRINGE SQ SCH (08:50)
[2018-12-05] MEDS: THIAMINE 100 MG in 0.9 % SODIUM CHLORIDE 50 ML IV SCH (08:50)
[2018-12-05] MEDS ORDERED: POTASSIUM PHOSPHATE 40 MEQ in DEXTROSE 5% IN WATER 500 ML IV ONE (09:00)
[2018-12-05] MEDS: ONDANSETRON 4 MG/2 ML VIAL IV PRN ×2 (09:06→21:43)
[2018-12-05] MEDS: 0.9 % SODIUM CHLORIDE 10 ML SYRINGE IV SCH ×2 (10:05→21:33)
--- NOTE | 2018-12-05 12:51 | Surgical Pathology Report ---
HISTOLOGY SPECIMEN MICROSCOPIC DIAGNOSIS COLON, SIGMOIDECTOMY: -- PORTION OF COLON WITH SEROSAL GRANULATION TISSUE AND SUBSEROSAL MIXED ACUTE AND CHRONIC INFLAMMATION INVOLVING SURGICAL MARGINS. -- TWO LYMPH NODES WITH NO DIAGNOSTIC ALTERATION (0/2). -- NO DYSPLASIA OR MALIGNANCY IDENTIFIED. (EBD:silvano) CLINICAL HISTORY Abdominal pain. GROSS DESCRIPTION Received in formalin labeled sigmoid colon, is a segment of bowel received with both margins stapled and tam attached fat measuring 45.6 cm in length and averages 5 cm in diameter. The serosa is pink-tam. The wall is up to 0.4 cm thick. Near one margin, 3 cm from one margin, there is an area of possible stricture. This margin is inked black. The mucosa is tam with broadened folds. There is a 0.5 cm candidate lymph node identified. The tam attached fat has a thickened outer layer. Recreational Therapist sections are submitted in six cassettes: A1 - margins; A2-A4 - random sections; A5 - commercial pest control representative sections of area of stricture; A6 - candidate lymph node and commercial pest control representative sections of thickened layer of tam attached fat. (SCB:adj) Electronically Signed by: Nadia Haji M.D.
[2018-12-05] MEDS: DEXTROSE 5%-1/2NS 1,000 ML IV SCH (15:46)
--- NOTE | 2018-12-05 16:26 | General Surgery Progress Note ---
Subjective Narrative: Note initiated : 12/05/18 at 4:24 pm Service Date, if different from initiated Date: [] Patient: Anabell Moreno 38 y/o F admitted on 12/01/18 for ABD PAIN. Chief Com----. Patient is doing well. She states that her pain is better. She is afebrile. She denies nausea. She states that she has had a small amount of flatus but no bowel movement. She complains of hunger. Blood pressure 4.9, hemoglobin 8.4, hematocrit 27.1, potassium 3.1, phosphorus 2.5.] Objective Temp Pulse Resp BP Pulse Ox 98.1 F 81 12 115/76 99 12/05/18 15:33 12/05/18 15:33 12/05/18 15:33 12/05/18 15:33 12/05/18 15:33 - Additional Data Intake & Output - Last 24 hours: Intake & Output 12/03/18 12/04/18 12/05/18 12/06/18 05:59 05:59 05:59 05:59 Intake Total 3821 2935.0909 1396 1825.0909 Output Total 2225 3330 3005 1475 Balance 1596 -394.9091 -7274 367.3544 Weight 172 lb 1.6 oz 170 lb 11.2 oz 167 lb 8 oz - General physical appearance well developed, well nourished, no distress - Eyes PERRL, normal ocular movement - ENT normal pinna, normal nares, normal mucosa, no hearing loss, no congestion - Neck no masses, no bruits, trachea midline, no lymphadenopathy, no venous distension - Respiratory normal expansion, normal respiratory effort, clear to auscultation - Cardiovascular Cardiovascular exam: Present: normal rate and rhythm, RRR, +S1, +S2. Absent: JVD, systolic murmur, tachycardia - Abdomen tender (mild incisional tenderness; active bowel sounds; incision looks good; MARTI drainage is serous) - Integumentary no rash, no growths, no abnormal pigmentation - Neurologic normal coordination, normal sensation - Musculoskeletal normal gait, normal posture - Psychiatric oriented to time, oriented to person, oriented to place, speech is normal, memory intact - Labs 12/05/18 03:58 12/05/18 03:58 Diabetes panel 12/05/18 Range/Units 03:58 Sodium 141 (133-145) mmol/L Potassium 3.1 L (3.3-5.1) mmol/L Chloride 105 (96-108) mmol/L Carbon Dioxide 29 (22-30) mmol/L BUN 2 L (6-20) mg/dl Creatinine 0.3 L (0.6-1.1) mg/dl Glucose 101 (70-105) mg/dL Calcium 7.3 L (8.6-10.4) mg/dl AST 13 (0-37) U/l ALT 12 (0-40) U/l Alkaline Phosphatase 94 (39-117) U/L Total Protein 4.9 L (5.9-8.4) gm/dL Albumin 2.1 L (3.2-5.2) gm/dL Triglycerides 94 (<150) mg/dl Calcium panel 12/05/18 Range/Units 03:58 Calcium 7.3 L (8.6-10.4) mg/dl Phosphorus 2.5 L (2.7-4.5) mg/dL Albumin 2.1 L (3.2-5.2) gm/dL Pituitary panel 12/05/18 Range/Units 03:58 Sodium 141 (133-145) mmol/L Potassium 3.1 L (3.3-5.1) mmol/L Chloride 105 (96-108) mmol/L Carbon Dioxide 29 (22-30) mmol/L BUN 2 L (6-20) mg/dl Creatinine 0.3 L (0.6-1.1) mg/dl Glucose 101 (70-105) mg/dL Calcium 7.3 L (8.6-10.4) mg/dl Adrenal panel 12/05/18 Range/Units 03:58 Sodium 141 (133-145) mmol/L Potassium 3.1 L (3.3-5.1) mmol/L Chloride 105 (96-108) mmol/L Carbon Dioxide 29 (22-30) mmol/L BUN 2 L (6-20) mg/dl Creatinine 0.3 L (0.6-1.1) mg/dl Glucose 101 (70-105) mg/dL Calcium 7.3 L (8.6-10.4) mg/dl Total Bilirubin 0.3 (0.0-1.0) mg/dL AST 13 (0-37) U/l ALT 12 (0-40) U/l Alkaline Phosphatase 94 (39-117) U/L Total Protein 4.9 L (5.9-8.4) gm/dL Albumin 2.1 L (3.2-5.2) gm/dL Assessment and Plan (1) History of partial colectomy Status: Acute Assessment and plan: Continue present antibiotic therapy. Delay, feeding until she has better Intestinal activity Current Visit: Yes - Time Spent With Patient Total time spent is greater than 50% in coordination of care (as documented) at patient's floor/unit and/or counseling patient:
[2018-12-06] MEDS: DEXTROSE 5%-1/2NS 1,000 ML IV SCH ×3 (02:59→16:54)
[2018-12-06] MEDS: HYDROmorphone 2 MG/ML VIAL IV PRN ×4 (02:59→14:01)
[2018-12-06] MEDS: ACETAMINOPHEN 650 MG/65 ML BOTTLE IV PRN ×2 (04:47→21:20)
[2018-12-06] MEDS: PIPERACILLIN SODIUM/TAZOBACTAM 3.375 GM in DEXTROSE 5% IN WATER 50 ML IV SCH ×3 (06:07→17:22)
[2018-12-06 06:28] LABS: Basophils # (Auto) 0 K/mcL (0.0-0.3); Basophils % (Auto) 0.2 % (0.0-2.0); Eosinophils # (Auto) 0.1 K/mcL (0.0-0.7); Eosinophils % (Auto) 2.5 % (0.0-7.0); Lymphocytes # (Auto) 1.9 K/mcL (1.5-4.8); Lymphocytes % (Auto) 31.9 % (15.5-49.0); Mean Cell Volume 73.5 fL (80.0-100.0); Mean Corpuscular HGB Conc 31.3 g/dL (31.0-36.0); Monocytes # (Auto) 0.6 K/mcL (0.1-0.9); Monocytes % (Auto) 9.4 % (1.0-12.0); Platelet Count 317 K/mcL (140-440); RBC 3.98 M/mcL (4.00-5.20); Red Cell Distribution Width 18.6 % (11.5-14.5)
[2018-12-06 06:47] LABS: ALT/SGPT 10 U/l (0-40); Albumin 2.1 gm/dL (3.2-5.2); Albumin/Globulin Ratio 0.6 (1.0-2.3); Alkaline Phosphatase 118 U/L (39-117); Bilirubin,Direct < 0.2 mg/dL (0.0-0.3); Blood Urea Nitrogen < 2 mg/dl (6-20); Gamma Glutamyl Transpeptidase 28 U/L (5-36); Uric Acid 0.9 mg/dL (2.5-8.0)
[2018-12-06] MEDS ORDERED: POTASSIUM PHOSPHATE 40 MEQ in DEXTROSE 5% IN WATER 500 ML IV ONE (07:31)
[2018-12-06] MEDS: DOXYCYCLINE 100 MG in DEXTROSE 5% IN WATER 100 ML IV SCH ×2 (10:10→21:20)
[2018-12-06] MEDS: 0.9 % SODIUM CHLORIDE 10 ML SYRINGE IV SCH ×2 (10:15→21:23)
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
[2018-12-06] MEDS: ENOXAPARIN 40 MG/0.4 ML SYRINGE SQ SCH (11:44)
[2018-12-06] MEDS: THIAMINE 100 MG in 0.9 % SODIUM CHLORIDE 50 ML IV SCH (11:56)
--- NOTE | 2018-12-06 16:42 | General Surgery Progress Note ---
Subjective Patient reports: feels better, still having pain, flatus, no bowel movement, nausea, afebrile Narrative: Note initiated : 12/06/18 at 4:40 pm Service Date, if different from initiated Date: [] Patient: Anabell Moreno 38 y/o F admitted on 12/01/18 for ABD PAIN. Chief Complaint: [patient continues to improve. She is having more flatus, but has not had a bowel movement. She denies nausea. She has been afebrile. White blood count 6, hemoglobin 9.1, hematocrit 29.2, potassium 3.3, phosphorus 2.6] Objective Temp Pulse Resp BP Pulse Ox 97.6 F 90 18 115/75 96 12/06/18 16:00 12/06/18 16:00 12/06/18 16:00 12/06/18 16:00 12/06/18 16:00 - Additional Data Intake & Output - Last 24 hours: Intake & Output 12/04/18 12/05/18 12/06/18 12/07/18 05:59 05:59 05:59 05:59 Intake Total 2935.0909 1396 3210.0909 493 Output Total 3330 3005 3575 1650 Balance -394.9091 -1609 -364.9091 -1157 Weight 170 lb 11.2 oz 167 lb 8 oz 165 lb 5 oz 165 lb 5 oz - General physical appearance well developed, well nourished, no distress, moderate pain, other (patient is very anxious) - Eyes PERRL, normal ocular movement - ENT normal pinna, normal nares, normal mucosa, no hearing loss, no congestion - Neck no masses, no bruits, trachea midline, no lymphadenopathy, no venous distension - Respiratory normal expansion, normal respiratory effort, clear to auscultation - Cardiovascular Cardiovascular exam: Present: normal rate and rhythm, RRR, +S1, +S2. Absent: JVD, tachycardia - Abdomen soft, tender (, moderate incisional tenderness), bowel sounds (. Good active bowel sounds), surgical scars (. Incision looks good) - Integumentary no rash, no growths, no abnormal pigmentation - Neurologic normal coordination, normal sensation - Musculoskeletal normal gait, normal posture - Psychiatric oriented to time, oriented to person, oriented to place, speech is normal, memory intact - Labs 12/06/18 04:54 12/06/18 04:54 Diabetes panel 12/06/18 Range/Units 04:54 Sodium 136 (133-145) mmol/L Potassium 3.3 (3.3-5.1) mmol/L Chloride 101 (96-108) mmol/L Carbon Dioxide 27 (22-30) mmol/L BUN < 2 L (6-20) mg/dl Creatinine 0.4 L (0.6-1.1) mg/dl Glucose 129 H (70-105) mg/dL Calcium 7.6 L (8.6-10.4) mg/dl AST 12 (0-37) U/l ALT 10 (0-40) U/l Alkaline Phosphatase 118 H (39-117) U/L Total Protein 5.4 L (5.9-8.4) gm/dL Albumin 2.1 L (3.2-5.2) gm/dL Triglycerides 117 (<150) mg/dl Calcium panel 12/06/18 Range/Units 04:54 Calcium 7.6 L (8.6-10.4) mg/dl Phosphorus 2.6 L (2.7-4.5) mg/dL Albumin 2.1 L (3.2-5.2) gm/dL Pituitary panel 12/06/18 Range/Units 04:54 Sodium 136 (133-145) mmol/L Potassium 3.3 (3.3-5.1) mmol/L Chloride 101 (96-108) mmol/L Carbon Dioxide 27 (22-30) mmol/L BUN < 2 L (6-20) mg/dl Creatinine 0.4 L (0.6-1.1) mg/dl Glucose 129 H (70-105) mg/dL Calcium 7.6 L (8.6-10.4) mg/dl Adrenal panel 12/06/18 Range/Units 04:54 Sodium 136 (133-145) mmol/L Potassium 3.3 (3.3-5.1) mmol/L Chloride 101 (96-108) mmol/L Carbon Dioxide 27 (22-30) mmol/L BUN < 2 L (6-20) mg/dl Creatinine 0.4 L (0.6-1.1) mg/dl Glucose 129 H (70-105) mg/dL Calcium 7.6 L (8.6-10.4) mg/dl Total Bilirubin 0.3 (0.0-1.0) mg/dL AST 12 (0-37) U/l ALT 10 (0-40) U/l Alkaline Phosphatase 118 H (39-117) U/L Total Protein 5.4 L (5.9-8.4) gm/dL Albumin 2.1 L (3.2-5.2) gm/dL Assessment and Plan (1) History of partial colectomy Status: Acute Assessment and plan: Continue present antibiotic therapy. Start clear liquids. Replace potassium phosphate. Metoclopramide every 6 hours Current Visit: Yes - Time Spent With Patient Total time spent is greater than 50% in coordination of care (as documented) at patient's floor/unit and/or counseling patient:
[2018-12-06] MEDS ORDERED: PROMETHAZINE 25 MG/ML VIAL IV PRN (16:52)
[2018-12-06] MEDS: fentaNYL 100 MCG/2 ML VIAL IV PRN ×2 (17:21→19:48)
[2018-12-06] MEDS: METOCLOPRAMIDE 10 MG/2 ML VIAL IV SCH (17:22)
[2018-12-06] MEDS ORDERED: FLUCONAZOLE 150 MG TABLET PO ONE (18:52)
[2018-12-06] MEDS: ONDANSETRON 4 MG/2 ML VIAL IV PRN (19:59)
[2018-12-06] MEDS: diphenhydrAMINE 50 MG/ML VIAL IV PRN (21:20)
[2018-12-07] MEDS: PIPERACILLIN SODIUM/TAZOBACTAM 3.375 GM in DEXTROSE 5% IN WATER 50 ML IV SCH ×5 (00:10→23:30)
[2018-12-07] MEDS: METOCLOPRAMIDE 10 MG/2 ML VIAL IV SCH ×5 (00:10→23:31)
[2018-12-07] MEDS: DEXTROSE 5%-1/2NS 1,000 ML IV SCH ×2 (03:11→23:32)
[2018-12-07 06:22] LABS: Basophils # (Auto) 0 K/mcL (0.0-0.3); Basophils % (Auto) 0 % (0.0-2.0); Eosinophils # (Auto) 0.1 K/mcL (0.0-0.7); Eosinophils % (Auto) 2.8 % (0.0-7.0); Granulocytes % (Auto) 58.4 % (38.0-78.0); Lymphocytes # (Auto) 1.4 K/mcL (1.5-4.8); Lymphocytes % (Auto) 29.2 % (15.5-49.0); Mean Cell Volume 73.8 fL (80.0-100.0); Monocytes # (Auto) 0.5 K/mcL (0.1-0.9); Monocytes % (Auto) 9.6 % (1.0-12.0); Platelet Count 431 K/mcL (140-440); RBC 3.84 M/mcL (4.00-5.20); Red Cell Distribution Width 18.6 % (11.5-14.5)
[2018-12-07 06:55] LABS: ALT/SGPT 8 U/l (0-40); Albumin 2.2 gm/dL (3.2-5.2); Albumin/Globulin Ratio 0.7 (1.0-2.3); Alkaline Phosphatase 110 U/L (39-117); Bilirubin,Direct < 0.2 mg/dL (0.0-0.3); Blood Urea Nitrogen < 2 mg/dl (6-20); Gamma Glutamyl Transpeptidase 25 U/L (5-36)
[2018-12-07] MEDS: ONDANSETRON 4 MG/2 ML VIAL IV PRN (07:17)
[2018-12-07] MEDS: fentaNYL 100 MCG/2 ML VIAL IV PRN ×2 (07:20→10:58)
[2018-12-07] MEDS ORDERED: POTASSIUM CHLORIDE 40 MEQ in DEXTROSE 5% IN WATER 500 ML IV ONE (07:32)
[2018-12-07] MEDS: THIAMINE 100 MG in 0.9 % SODIUM CHLORIDE 50 ML IV SCH (08:14)
[2018-12-07] MEDS: ENOXAPARIN 40 MG/0.4 ML SYRINGE SQ SCH (09:38)
[2018-12-07] MEDS: DOXYCYCLINE 100 MG in DEXTROSE 5% IN WATER 100 ML IV SCH ×2 (09:43→20:32)
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
[2018-12-07] MEDS: 0.9 % SODIUM CHLORIDE 10 ML SYRINGE IV SCH ×2 (11:00→21:42)
--- NOTE | 2018-12-07 13:24 | General Surgery Progress Note ---
Subjective Patient reports: feels better, pain is less, tolerating liquids well, voiding w/o difficulty, flatus, bowel movement, afebrile Narrative: Note initiated : 12/07/18 at 1:22 pm Service Date, if different from initiated Date: [] Patient: Anabell Moreno 38 y/o F admitted on 12/01/18 for ABD PAIN. Chief Complaint: [patient is stable and is doing well. She had 3 bowel movements and is tolerating a soft diet. Her general abdominal pain improved. White blood count 4.9, hemoglobin 8.8, hematocrit 28.4, potassium 3.4, BUN 2, creatinine 0.4.] Objective Temp Pulse Resp BP Pulse Ox 98.6 F 88 16 109/74 99 12/07/18 12:00 12/07/18 12:00 12/07/18 12:00 12/07/18 12:00 12/07/18 12:00 - Additional Data Intake & Output - Last 24 hours: Intake & Output 12/05/18 12/06/18 12/07/18 12/08/18 05:59 05:59 05:59 05:59 Intake Total 1396 3210.0909 1932 1291 Output Total 3005 3575 3620 600 Balance -1609 -364.9091 -0658 691 Weight 167 lb 8 oz 165 lb 5 oz 167 lb - General physical appearance well developed, well nourished, no distress - Eyes PERRL, normal ocular movement - ENT normal pinna, normal nares, normal mucosa, no hearing loss, no congestion - Neck no masses, no bruits, trachea midline, no lymphadenopathy, no venous distension - Respiratory normal expansion, normal respiratory effort, clear to auscultation - Cardiovascular Cardiovascular exam: Present: normal rate and rhythm, RRR, +S1, +S2. Absent: JVD, tachycardia - Abdomen tender (mild incisional tenderness; good active bowel sounds; no distention noted) - Integumentary no rash, no growths, no abnormal pigmentation - Neurologic normal coordination, normal sensation - Musculoskeletal normal gait, normal posture - Psychiatric oriented to time, oriented to person, oriented to place, speech is normal, memory intact - Labs 12/07/18 05:00 12/07/18 05:00 Diabetes panel 12/07/18 Range/Units 05:00 Sodium 140 (133-145) mmol/L Potassium 3.4 (3.3-5.1) mmol/L Chloride 105 (96-108) mmol/L Carbon Dioxide 27 (22-30) mmol/L BUN < 2 L (6-20) mg/dl Creatinine 0.4 L (0.6-1.1) mg/dl Glucose 104 (70-105) mg/dL Calcium 7.7 L (8.6-10.4) mg/dl AST 10 (0-37) U/l ALT 8 (0-40) U/l Alkaline Phosphatase 110 (39-117) U/L Total Protein 5.4 L (5.9-8.4) gm/dL Albumin 2.2 L (3.2-5.2) gm/dL Triglycerides 95 (<150) mg/dl Calcium panel 12/07/18 Range/Units 05:00 Calcium 7.7 L (8.6-10.4) mg/dl Phosphorus 2.7 (2.7-4.5) mg/dL Albumin 2.2 L (3.2-5.2) gm/dL Pituitary panel 12/07/18 Range/Units 05:00 Sodium 140 (133-145) mmol/L Potassium 3.4 (3.3-5.1) mmol/L Chloride 105 (96-108) mmol/L Carbon Dioxide 27 (22-30) mmol/L BUN < 2 L (6-20) mg/dl Creatinine 0.4 L (0.6-1.1) mg/dl Glucose 104 (70-105) mg/dL Calcium 7.7 L (8.6-10.4) mg/dl Adrenal panel 12/07/18 Range/Units 05:00 Sodium 140 (133-145) mmol/L Potassium 3.4 (3.3-5.1) mmol/L Chloride 105 (96-108) mmol/L Carbon Dioxide 27 (22-30) mmol/L BUN < 2 L (6-20) mg/dl Creatinine 0.4 L (0.6-1.1) mg/dl Glucose 104 (70-105) mg/dL Calcium 7.7 L (8.6-10.4) mg/dl Total Bilirubin 0.2 (0.0-1.0) mg/dL AST 10 (0-37) U/l ALT 8 (0-40) U/l Alkaline Phosphatase 110 (39-117) U/L Total Protein 5.4 L (5.9-8.4) gm/dL Albumin 2.2 L (3.2-5.2) gm/dL Assessment and Plan (1) History of partial colectomy Status: Acute Assessment and plan: Continue present antibiotic therapy. Advanced to soft diet. Metoclopramide every 6 hours Current Visit: Yes - Time Spent With Patient Total time spent is greater than 50% in coordination of care (as documented) at patient's floor/unit and/or counseling patient:
[2018-12-07] MEDS ORDERED: ZOLPIDEM 5 MG TABLET PO PRN (19:24)
[2018-12-07] MEDS ORDERED: ACETAMINOPHEN 650 MG/65 ML BOTTLE IV PRN (19:27)
[2018-12-07] MEDS: HYDROcodone/APAP 10/325MG TABLET PO PRN (20:28)
[2018-12-08] MEDS: HYDROcodone/APAP 10/325MG TABLET PO PRN ×4 (00:31→17:02)
[2018-12-08] MEDS: METOCLOPRAMIDE 10 MG/2 ML VIAL IV SCH ×2 (05:01→11:17)
[2018-12-08] MEDS: PIPERACILLIN SODIUM/TAZOBACTAM 3.375 GM in DEXTROSE 5% IN WATER 50 ML IV SCH (05:01)
[2018-12-08 06:26] LABS: Basophils # (Auto) 0 K/mcL (0.0-0.3); Basophils % (Auto) 0.1 % (0.0-2.0); Eosinophils # (Auto) 0.2 K/mcL (0.0-0.7); Granulocytes % (Auto) 51.7 % (38.0-78.0); Lymphocytes # (Auto) 2.1 K/mcL (1.5-4.8); Lymphocytes % (Auto) 38.2 % (15.5-49.0); Mean Cell Volume 73.8 fL (80.0-100.0); Mean Corpuscular HGB Conc 30.8 g/dL (31.0-36.0); Monocytes # (Auto) 0.4 K/mcL (0.1-0.9); Platelet Count 520 K/mcL (140-440); RBC 3.67 M/mcL (4.00-5.20); Red Cell Distribution Width 18.9 % (11.5-14.5)
[2018-12-08 07:12] LABS: ALT/SGPT 6 U/l (0-40); Albumin 2.4 gm/dL (3.2-5.2); Albumin/Globulin Ratio 0.8 (1.0-2.3); Alkaline Phosphatase 89 U/L (39-117); Bilirubin,Direct < 0.2 mg/dL (0.0-0.3); Blood Urea Nitrogen < 2 mg/dl (6-20); Gamma Glutamyl Transpeptidase 21 U/L (5-36); Uric Acid 0.8 mg/dL (2.5-8.0)
[2018-12-08] MEDS ORDERED: DOXYCYCLINE HYCLATE 100 MG TABLET.ORL PO SCH (09:00)
[2018-12-08] MEDS ORDERED: ESCITALOPRAM 20 MG TABLET PO SCH (09:00)
[2018-12-08] MEDS: ENOXAPARIN 40 MG/0.4 ML SYRINGE SQ SCH (09:12)
[2018-12-08] MEDS: 0.9 % SODIUM CHLORIDE 10 ML SYRINGE IV SCH (09:12)
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
[2018-12-08] MEDS: DEXTROSE 5%-1/2NS 1,000 ML IV SCH (10:29)
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
[2018-12-08] MEDS ORDERED: metroNIDAZOLE 500 MG TABLET PO SCH (14:00)
--- NOTE | 2018-12-08 16:12 | Discharge Summary ---
Providers - Providers Patient information: Note initiated : 12/08/18 at 4:04 pm Service Date, if different from initiated Date: [] Patient: Anabell Moreno 38 y/o F admitted on 12/01/18 for ABD PAIN. Chief Complaint: [] Date of admission: 11/30/18 Discharge date: 12/08/18 Attending physician: Juan Jose Chong General surgery---- Dr. Kline Hospitalization Hospital course: 38-year-old female who presented on the late evening of November with complaint of dysuria, abdominal pain, fever of 24 hours duration. She had dysuria. She underwent pelvic examination by the ER physician and cultures were taken which were positive for gonorrhea. The patient also had elevated white count with evidence of sepsis with associated elevated lactate, and temperature 100.2. Vaginal cultures grew out Neisseria gonorrhea. Urine cultures were also positive for enterococcus. There was high suspicion for pyelonephritis. She was treated appropriately. However, over the next day she had increasing abdominal pain. Review of her CT suggested a dilated left colon with an internal hernia. Her white count increased to 22,000 and she became clinically worse. She was explored and was found to have extensive adhesions of the omentum to the liver: Large opening in the mesentery near the splenic flexure creating an internal hernia. She had very dilated cecum and the extremely dilated sigmoid colon up to 4 times normal. There was also evidence of inflammation in the pelvis suggestive of pelvic inflammatory disease.. She underwent sigmoid colectomy with end to end anastomosis and extensive adhesioly sis. The patient's drug screen was positive for , methamphetamine. She was treated appropriately and gradually improved. By 05 December she was having increased flatus. She was started on clear liquids and advance to soft. She has done well. She had pelvic drains placed which has not drained any significant fluid from any time over the past 48 hours so the drains are removed. Patient is stable and is discharged home in satisfactory condition. Discharge diagnosis: sigmoid colon obstruction Secondary discharge diagnosis: Internal mesenteric hernia. Pelvic inflammatory disease due to . Gonorrhea. Pyelonephritis due to enterococcus. Polysubstance abuse. Chronic depression Reason for admission: abdominal pain, dysuria, fever, leukocytosis and sepsis Procedures: Sigmoid colon, resection with anastomosis. Extensive adhesion lysis Pertinent studies/significant findings: CT of abdomen and pelvis with contrast Complications: None Exam Temp Pulse Resp BP Pulse Ox 99.5 F H 83 15 122/77 97 12/08/18 10:58 12/08/18 10:58 12/08/18 10:58 12/08/18 10:58 12/08/18 10:58 - General physical appearance well developed, well nourished, no distress - Eyes PERRL, normal ocular movement - ENT normal pinna, normal nares, normal mucosa, no hearing loss, no congestion - Head Head exam IM: Present: atraumatic, normocephalic - Neck no masses, no bruits, trachea midline, no lymphadenopathy, no venous distension - Cardiovascular Cardiovascular exam IM: Present: normal rate and rhythm, RRR, +S1, +S2. Absent: JVD, tachycardia - Respiratory normal expansion, normal respiratory effort, clear to percussion, clear to auscultation - Abdomen Abdomen: Present: soft, tender (mild incisional tenderness; good active bowel sounds; incision is healing nicely; MARTI drains were removed), bowel sounds Hernia: Present: none - Genitourinary Present: normal external genitalia - Integumentary Present: no rash, no growths, no abnormal pigmentation - Neurologic Present: normal coordination, normal sensation - Musculoskeletal Present: normal gait, normal posture - Psychiatric Present: oriented to time, oriented to person, oriented to place, speech is normal, memory intact Discharge Plan - Patient/Caregiver Discharge Instructions Activity: increase activity as tolerated, resume usual activities as tolerated Diet: Regular Diet Additional Instructions: May shower. Leave dressing in place until seen in the physician's office. No heavy lifting. Prescriptions: Cefuroxime [Ceftin] 500 mg PO Q12 #14 tab HYDROcodone/APAP 10/325MG [Mon[place] 10-325Mg] 1 tab PO Q4HP PRN #20 tab PRN Reason: Pain Level 3-6 - Follow up Plan Follow up with: David Price ARNP [Primary Care Provider] - Damaris Servin MD [Physician] - 12/15/18 1:00 pm Disposition: Home, Self-Care Prognosis: Good Rehab Potential: Good I certify that the patient requires SNF services.: No Overall status at discharge: patient is progressing back to baseline Pending Studies Resuscitation Status Full Code Diet Low Fiber (Low residue) Diet Start WedDecember 07 1304 Hydrocodone Bitart/Acetaminophen ([place] 10/325mg) 1 tab PO Q4HP PRN PRN Reason: PAIN LEVEL 3-6 Last Admin: 12/08/18 11:17 Dose: 1 tab Documented by: Admin: 12/08/18 04:50 Dose: 1 tab Documented by: Admin: 12/08/18 00:31 Dose: 1 tab Documented by: Admin: 12/07/18 20:28 Dose: 1 tab Documented by: WILLIAM Diphenhydramine HCl (Benadryl) 25 mg IV Q6HP PRN PRN Reason: Allergic Symptoms Last Admin: 12/06/18 21:20 Dose: 25 mg Documented by: Admin: 12/05/18 23:59 Dose: 25 mg Documented by: Admin: 12/05/18 00:09 Dose: 25 mg Documented by: RANDEE Doxycycline Hyclate (Doxycycline Hyclate) 100 mg PO BID [facility]; Protocol Last Admin: 12/08/18 09:11 Dose: 100 mg Documented by: DEBORAH Enoxaparin Sodium (Lovenox) 40 mg SQ DAILY [facility] Last Admin: 12/08/18 09:12 Dose: 40 mg Documented by: Admin: 12/07/18 09:38 Dose: 40 mg Documented by: MICHAEL Walligned by: KATE Admin: 12/06/18 11:44 Dose: 40 mg Documented by: Admin: 12/05/18 08:50 Dose: 40 mg Documented by: SAHARA Escitalopram Oxalate (Lexapro) 20 mg PO DAILY [facility] Last Admin: 12/08/18 09:11 Dose: 20 mg Documented by: DEBORAH Fentanyl (Sublimaze) 25 mcg IV Q2HP PRN PRN Reason: PAIN LEVEL > 6 Last Admin: 12/07/18 10:58 Dose: 25 mcg Documented by: Admin: 12/07/18 07:20 Dose: 25 mcg Documented by: Admin: 12/06/18 19:48 Dose: 25 mcg Documented by: Admin: 12/06/18 17:21 Dose: 25 mcg Documented by: ETHAN Heparin Sodium (Porcine) (Heparin Flush) 2 ml IV Q12 [facility] Last Admin: 12/08/18 09:11 Dose: 2 ml Documented by: Admin: 12/07/18 20:29 Dose: 2 ml Documented by: Admin: 12/07/18 11:01 Dose: 2 ml Documented by: Admin: 12/06/18 21:23 Dose: Not Given Documented by: Admin: 12/06/18 11:45 Dose: 2 ml Documented by: Admin: 12/05/18 21:33 Dose: Not Given Documented by: Admin: 12/05/18 10:04 Dose: 2 ml Documented by: Admin: 12/04/18 21:56 Dose: 2 ml Documented by: Admin: 12/04/18 09:12 Dose: 2 ml Documented by: Admin: 12/03/18 20:55 Dose: 2 ml Documented by: WILLIAM Acetaminophen (Ofirmev) 650 mg in 65 mls @ 130 mls/hr IV Q6HP PRN PRN Reason: PAIN/FEVER > 101 Last Admin: 12/06/18 21:20 Dose: 130 mls/hr Documented by: Infusion: 12/06/18 05:17 Dose: 0 mls/hr Documented by: Admin: 12/06/18 04:47 Dose: 130 mls/hr Documented by: Infusion: 12/05/18 23:38 Dose: 130 mls/hr Documented by: Admin: 12/05/18 23:08 Dose: 130 mls/hr Documented by: Infusion: 12/05/18 13:58 Dose: 0 mls/hr Documented by: Admin: 12/05/18 12:56 Dose: 130 mls/hr Documented by: Infusion: 12/05/18 04:58 Dose: 0 mls/hr Documented by: Admin: 12/05/18 04:23 Dose: 130 mls/hr Documented by: Infusion: 12/04/18 21:39 Dose: 0 mls/hr Documented by: Admin: 12/04/18 19:43 Dose: 130 mls/hr Documented by: Infusion: 12/04/18 13:29 Dose: 0 mls/hr Documented by: Admin: 12/04/18 12:41 Dose: 130 mls/hr Documented by: Infusion: 12/04/18 03:30 Dose: 0 mls/hr Documented by: Admin: 12/04/18 02:32 Dose: 130 mls/hr Documented by: Infusion: 12/03/18 02:54 Dose: 0 mls/hr Documented by: Admin: 12/03/18 02:13 Dose: 130 mls/hr Documented by: Infusion: 12/02/18 21:13 Dose: 0 mls/hr Documented by: Admin: 12/02/18 20:34 Dose: 130 mls/hr Documented by: Infusion: 12/02/18 15:00 Dose: 0 mls/hr Documented by: Admin: 12/02/18 14:21 Dose: 130 mls/hr Documented by: JASLucia Dextrose/Sodium Chloride (Dextrose 5%-1/2ns Iv Solution) 1,000 mls @ 75 mls/hr IV .[id number] [facility] Admin: 12/08/18 10:29 Dose: Not Given Documented by: Admin: 12/07/18 23:32 Dose: 75 mls/hr Documented by: Infusion: 12/07/18 08:15 Dose: 0 mls/hr Documented by: Admin: 12/07/18 03:11 Dose: Not Given Documented by: Admin: 12/06/18 16:54 Dose: 75 mls/hr Documented by: Infusion: 12/06/18 16:54 Dose: 75 mls/hr Documented by: Infusion: 12/06/18 08:11 Dose: 75 mls/hr Documented by: Admin: 12/06/18 06:09 Dose: 75 mls/hr Documented by: Infusion: 12/06/18 05:06 Dose: 75 mls/hr Documented by: Admin: 12/06/18 02:59 Dose: Not Given Documented by: Admin: 12/05/18 15:46 Dose: 75 mls/hr Documented by: GM4 Infusion: 12/05/18 08:12 Dose: 75 mls/hr Documented by: Admin: 12/04/18 23:25 Dose: Not Given Documented by: Admin: 12/04/18 18:52 Dose: 75 mls/hr Documented by: Admin: 12/04/18 17:09 Dose: Not Given Documented by: Infusion: 12/04/18 15:30 Dose: 75 mls/hr Documented by: Admin: 12/04/18 02:10 Dose: 75 mls/hr Documented by: Infusion: 12/03/18 21:36 Dose: 75 mls/hr Documented by: Admin: 12/03/18 08:16 Dose: 75 mls/hr Documented by: DEO Metoclopramide HCl (Reglan) 10 mg IV Q6 [facility] Last Admin: 12/08/18 11:17 Dose: 10 mg Documented by: Admin: 12/08/18 05:01 Dose: 10 mg Documented by: Admin: 12/07/18 23:31 Dose: 10 mg Documented by: Admin: 12/07/18 17:18 Dose: 10 mg Documented by: Admin: 12/07/18 11:49 Dose: 10 mg Documented by: Admin: 12/07/18 05:04 Dose: 10 mg Documented by: Admin: 12/07/18 00:10 Dose: 10 mg Documented by: Admin: 12/06/18 17:22 Dose: 10 mg Documented by: ETHAN Metronidazole (Flagyl) 500 mg PO Q8 [facility]; Protocol Last Admin: 12/08/18 13:53 Dose: 500 mg Documented by: DEBORAH Ondansetron HCl (Zofran) 4 mg IV Q4HP PRN PRN Reason: Nausea And Vomiting Last Admin: 12/07/18 07:17 Dose: 4 mg Documented by: Admin: 12/06/18 19:59 Dose: 4 mg Documented by: Admin: 12/05/18 21:43 Dose: 4 mg Documented by: Admin: 12/05/18 09:06 Dose: 4 mg Documented by: Admin: 12/03/18 04:54 Dose: 4 mg Documented by: DOROTHY Sodium Chloride (Saline Flush) 10 ml IV Q12 [facility] Last Admin: 12/08/18 09:12 Dose: 10 ml Documented by: Admin: 12/07/18 21:42 Dose: Not Given Documented by: Admin: 12/07/18 11:00 Dose: 10 ml Documented by: Admin: 12/06/18 21:23 Dose: Not Given Documented by: Admin: 12/06/18 10:15 Dose: 10 ml Documented by: Admin: 12/05/18 21:33 Dose: Not Given Documented by: Admin: 12/05/18 10:05 Dose: 10 ml Documented by: Admin: 12/04/18 21:56 Dose: 10 ml Documented by: Admin: 12/04/18 09:13 Dose: 10 ml Documented by: Admin: 12/03/18 21:01 Dose: 10 ml Documented by: WILLIAM Zolpidem Tartrate (Ambien) 10 mg PO HSP PRN PRN Reason: Insomnia Last Admin: 12/07/18 20:27 Dose: 10 mg Documented by: WILLIAM Shift Summary 12/08/18 03:06 Shift Summary by Silvina Palacios a/o x4, brp with standby assist,picc line to rt upper arm, double lumen, ivf of d5 1/2 ns at 75 cc/hr, receiving iv abx, mid line abd dressing to abd with abd binder in use, rt and lt marti drain with light serous fluid output, she has had 1 stool this shift, small brown pellets, requires hygiene assist after each void/bm, she was started on a gi soft diet yesterday, tolerated it well, no c/o nausea this shift, has been medicated with ambien and norco 10, she is to start med lexapro today Initialized on 12/08/18 03:06 - END OF NOTE
== END 2018-12-08 18:05 | disposition home or self-care (01) | DRG 854 ==
LOC: ED 17:49 → MEDSUR 12-01 00:55
PROVIDERS: ADMIT Internal Medicine; ATTEND Family Medicine Adult Medicine